=== PATIENT | female | born 1970 | race Caucasian/White ===

== ENCOUNTER 2019-09-20 09:48 | Emergency (ER) | payer MEDICAID ==
[~2019-09-20] VITALS: Ht 175.3 cm; Wt 70.0 kg
[~2019-09-20 09:48] MED LIST: BACL10TA2 PO; IBUP-1985 PO; LORA-512 PO; MECL12.584 PO
--- NOTE | 2019-09-20 10:03 | NUR ---
AWAITING ED PROVIDER.
[2019-09-20] MEDS ORDERED: proCHLORperazine 10 MG/2 ml inj IM ONE (11:15)
[2019-09-20] MEDS ORDERED: diphenhydrAMINE 50 mg/ml inj IM ONE (11:15)
[2019-09-20] MEDS ORDERED: ketorolac tromethamine 15mg/ml inj. IM ONE (11:30)
[2019-09-20 12:11] VITALS: BP 153/83
== END 2019-09-20 12:14 | disposition home or self-care (01) ==
LOC: ER 09:48
DX: G43.909 Migraine, unspecified, not intractable, without status migrainosus (principal); G62.9 Polyneuropathy, unspecified; G89.29 Other chronic pain; Z88.5 Allergy status to narcotic agent; Z88.0 Allergy status to penicillin; Z88.6 Allergy status to analgesic agent; Z79.899 Other long term (current) drug therapy
CPT/HCPCS: 96372; 99283; J0780; J1200; J1885

== ENCOUNTER 2019-10-31 08:19 | Emergency (ER) | payer MEDICAID ==
[~2019-10-31] VITALS: Ht 175.3 cm; Wt 90.9 kg
[2019-10-31] MEDS ORDERED: ROBDML PO (09:05)
[2019-10-31] MEDS ORDERED: BENZ-16 PO (09:05)
[2019-10-31 09:11] VITALS: BP 130/78
== END 2019-10-31 09:26 | disposition home or self-care (01) ==
LOC: ER 08:20
DX: J06.9 Acute upper respiratory infection, unspecified (principal); B97.89 Other viral agents as the cause of diseases classified elsewhere; F17.210 Nicotine dependence, cigarettes, uncomplicated; G89.29 Other chronic pain; G62.9 Polyneuropathy, unspecified; Z59.0 Homelessness; Z88.5 Allergy status to narcotic agent; Z88.0 Allergy status to penicillin; Z79.899 Other long term (current) drug therapy
CPT/HCPCS: 93005; 99283; 99406